=== PATIENT | female | born 1955 | race Caucasian/White ===

== ENCOUNTER → 2016-07-27 | Outpatient (CLI) | payer OTHER ==
--- NOTE | 2016-07-27 13:12 | MA ---
Screening Digital Mammogram with iCAD Clinical Indications: Routine screening. Technique: Standard cephalocaudal and mediolateral oblique projections were obtained. This examinat ion was processed by the iCAD computer aided detection system. Comparison: 2014, 2013, 2012, 2011 Breast density: 2; 25 to 50% Findings: CAD was reviewed. No suspicious findings are identified. No interval development of new suspicious calcification, mass, or architectural distortion. Impression: Benign. BI-RADS 2. Recommendation: Routine screening is recommended in one year. [facility] will send a result letter to the patient. Negative mammography should not preclude additional workup of a clinically suspicious finding. The patient's information is entered into a reminder system with a target due date for her next mammo gram.
== END ==
LOC: BMCIMAGING 09:39
DX: Z12.31 Encounter for screening mammogram for malignant neoplasm of breast (principal)
CPT/HCPCS: G0202

== ENCOUNTER → 2016-10-01 | Outpatient (CLI) | payer OTHER | LOC: BMCIMAGING 11:45 | PROVIDERS: ATTEND Family Medicine | DX: J18.1 Lobar pneumonia, unspecified organism (principal) ==

== ENCOUNTER → 2017-08-30 | Outpatient (CLI) | payer OTHER | LOC: BMCIMAGING 12:27 | PROVIDERS: ATTEND Family Medicine | DX: J40 Bronchitis, not specified as acute or chronic (principal) ==

== ENCOUNTER → 2017-09-13 | Outpatient (CLI) | payer OTHER | LOC: BMCIMAGING 08:57 | PROVIDERS: ATTEND Obstetrics & Gynecology | DX: Z12.31 Encounter for screening mammogram for malignant neoplasm of breast (principal) ==

== ENCOUNTER → 2017-11-19 | Outpatient (CLI) | payer OTHER | LOC: BMCIMAGING 10:30 | PROVIDERS: ATTEND Internal Medicine Endocrinology, Diabetes & Metabolism | DX: Z13.820 Encounter for screening for osteoporosis (principal); M85.89 Other specified disorders of bone density and structure, multiple sites; E05.00 Thyrotoxicosis with diffuse goiter without thyrotoxic crisis or storm; Z78.0 Asymptomatic menopausal state ==

== ENCOUNTER → 2018-10-28 | Outpatient (CLI) | payer OTHER | LOC: BMCIMAGING 08:10 | PROVIDERS: ATTEND Obstetrics & Gynecology | DX: Z12.31 Encounter for screening mammogram for malignant neoplasm of breast (principal) ==